=== PATIENT | female | born 1980 | race Caucasian/White ===

== ENCOUNTER 2019-05-06 19:35 | Observation (INO) | payer BC ==
[~2019-05-06] VITALS: Ht 165.1 cm; Wt 59.1 kg
[~2019-05-06 19:35] MED LIST: ALLEGRA30 MG PO; CLARITIN 1010 MG/TAB PO; MOTRIN 600600 MG/TAB PO; PERCOCET 325 MG1 TA2 PO; SUDAFED PE10 M1 MM
[2019-05-06 20:39] LABS: BASO # 0.1 (0.0-0.2); BASO % 0.5 % (0.0-2.0); EOS # 0.2 (0.0-0.7); EOS % 1.4 % (0-4.0); GRAN # 11.3 (1.4-6.5); GRAN % 74.3 % (42.2-75.2); HEMATOCRIT 43.1 % (37.0-47.0); HEMOGLOBIN 14.5 g/dl (12.5-16.0); LYMPH # 2.1 (1.2-3.4); LYMPH % 13.7 % (20.0-51.0); MEAN CELL VOLUME 87 fl (80.0-100.0); MEAN CORPUSCULAR HEMOGLOBIN 29 pg (27.0-31.0); MEAN CORPUSCULAR HGB CONC 34 g/dl (33.0-37.0); MEAN PLATELET VOLUME 9.2 fl (7.4-10.4); MONO # 1.5 (0.1-0.6); MONO % 9.8 % (1.7-9.3); PLATELET COUNT 300 K/mm3 (130-400); RED BLOOD COUNT 4.98 M/mm3 (4.10-5.30); REDCELL DISTRIBUTION WIDTH-CV 12.3 % (11.5-14.5)
[2019-05-06 20:46] LABS: COLLECTION METHOD CLEAN CATCH
[2019-05-06 20:46] LABS: ALBUMIN 4.4 gm/dL (3.5-5.0); BILIRUBIN,TOTAL 0.6 mg/dL (0.0-1.0); CALCIUM 9.4 mg/dL (8.4-10.2); CREATININE, serum 0.74 (0.52-1.25); POTASSIUM 3.7 mmol/L (3.4-5.0); TOTAL PROTEIN 7.7 gm/dL (6.4-8.2)
[2019-05-06 21:10] LABS: PH 8 (5-8); URINE APPEARANCE Clear; URINE BACTERIA None Seen /hpf; URINE BILIRUBIN Negative (NEGATIVE); URINE BLOOD 2+ (NEGATIVE); URINE COLOR Straw; URINE GLUCOSE Negative (NEGATIVE); URINE KETONE Trace (NEGATIVE); URINE LEUKOCYTE ESTERASE Negative (NEGATIVE); URINE NITRATE Negative (NEGATIVE); URINE PROTEIN(semi-quant) Negative (NEGATIVE); URINE UROBILINOGEN Negative (NEGATIVE)
[2019-05-06 22:40] VITALS: BP 104/62; PULSE 64; TEMP 98.4
[2019-05-06 23:34] VITALS: BP 104/62; PULSE 64; TEMP 98.4
--- NOTE | 2019-05-07 02:30 | NUR ---
Up to bathroom with steady gait. Rates pain at a 2 on 1-10 scale while up to bathroom.
--- NOTE | 2019-05-07 02:35 | NUR ---
requests and receives pain medication, reports pain now a 6.
[2019-05-07 05:30] VITALS: BP 95/57; PULSE 56; TEMP 98.3
--- NOTE | 2019-05-07 05:30 | NUR ---
Awakened for vital signs. Reports pain level a 2 on 1 to 10 scale
[2019-05-07 07:04] VITALS: BP 100/70; PULSE 54
[2019-05-07 07:16] LABS: HEMATOCRIT 38.5 % (37.0-47.0); MEAN CELL VOLUME 90 fl (80.0-100.0); MEAN CORPUSCULAR HEMOGLOBIN 29 pg (27.0-31.0); MEAN CORPUSCULAR HGB CONC 33 g/dl (33.0-37.0); PLATELET COUNT 239 K/mm3 (130-400); RED BLOOD COUNT 4.27 M/mm3 (4.10-5.30); REDCELL DISTRIBUTION WIDTH-CV 12.7 % (11.5-14.5)
[2019-05-07 07:19] LABS: HEMOGLOBIN 12.5 g/dl (12.5-16.0)
[2019-05-07] MEDS ORDERED: PERCOCET 325 MG1 TA2 PO (08:44)
[2019-05-07] MEDS ORDERED: MOTRIN 800800 MG/TAB PO (08:44)
--- NOTE | 2019-05-07 08:45 | NUR ---
Patient discharge education reviewed, patient states understanding, denies questions or concerns. patient escorted off unit with spouse.
== END 2019-05-07 08:45 | disposition home or self-care (01) ==
LOC: COL.ER 19:35 → OB 22:04
PROVIDERS: Emergency Medicine; ADMIT Obstetrics & Gynecology
DX: R10.2 Pelvic and perineal pain (principal); C18.9 Malignant neoplasm of colon, unspecified
CPT/HCPCS: G0378; J1170; J2405; J7030; Q9967

== ENCOUNTER 2019-05-13 12:54 | Inpatient (IN) | payer BC ==
[~2019-05-13] VITALS: Ht 165.1 cm; Wt 56.0 kg
[~2019-05-13 12:54] MED LIST changes: +MOTRIN 800800 MG/TAB PO
[2019-05-27] VITALS (10 sets, daily range): BP systolic 116–138; BP diastolic 70–90; PULSE 16–108; TEMP 97.7–98.2
[2019-05-27] MEDS ORDERED: EXCEDRIN1 TAB PO (09:24)
[2019-05-27] MEDS ORDERED: ZOFRAN 4MG T4 MG/TAB PO (09:25)
--- NOTE | 2019-05-27 14:45 | NUR ---
PATIENT TO ROOM 331 PER BED WITH REPORT FROM NILAM ROSE PACU @ 1400. PT IS DROWSY BUT EASILY AROUSABLE, LUNGS CLEAR, SIX LAP SITES CDI WITH BANDAIDS OVER INCISIONS. SMITH CATHETER TO DD CLEAR YELLOW URINE IN BAG. IV TO RW. ORIENTED PT AND FAMILY TO ROOM AND DIET ORDERS. REVIEWED ERAS PROTOCOLS. VSS, WARM BLANKETS PROVIDED. AND EXTENDED FAMILY AT BEDSIDE.
--- NOTE | 2019-05-27 16:23 | NUR ---
PT RESTING COMFORTABLY IN ROOM MANY VISITORS COMMING AND GOING.
--- NOTE | 2019-05-27 17:52 | NUR ---
PT UP WALKING HALLS WITH SBA. WALKED 200+ FEET EASILY. PAIN WELL CONTROLLED WITH PO PAIN MEDS SEE EMAR. PT UP TO RECLINER AFTER WALK STARTED CHEWING GUM AND EATING CLEARS.
--- NOTE | 2019-05-27 23:14 | NUR ---
PATIENT ASSESSMENT COMPLETED. 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 PATIENT ALERT AND ORIENTED AND VSS. PATIENT HAS 6 LAP SITES, ALL CLEAN DRY AND INTACT, COVERED WITH BANAID. PATIETN DOES HAVE SMITH WITH CLEAR, YELLOW URINE. PATIENT IS DOING WELL. PATIENT AMBUALTED IN HERNANDEZ TWICE AND TOLERATED WELL. PATIENT HAS IV IN LEFT HAND WITH NS RUNNING. PATIENT DOES NOT C/O PAIN AT THIS TIME, ALL MEDS GIVEN. PATIENT SLEEPING IN ROOM WITH FAMILY. CALL LIGHT WITHIN REACH, WILL CONTINUE TO MONITOR
[2019-05-28] VITALS (7 sets, daily range): BP systolic 100–119; BP diastolic 62–78; PULSE 55–84; TEMP 97.6–98.4
--- NOTE | 2019-05-28 02:16 | NUR ---
patient resting quietly in bed. ancef given to patient. call light within reach, will continue to monitor
--- NOTE | 2019-05-28 03:50 | NUR ---
patient resting in bed, states she feels good and has been sleeping well. call light within reach, will continue to monitor
[2019-05-28 06:39] LABS: BASO # 0.1 (0.0-0.2); BASO % 0.5 % (0.0-2.0); EOS # 0.1 (0.0-0.7); EOS % 0.6 % (0-4.0); GRAN % 72.9 % (42.2-75.2); HEMATOCRIT 39.4 % (37.0-47.0); LYMPH # 1.4 (1.2-3.4); LYMPH % 13.1 % (20.0-51.0); MEAN CELL VOLUME 87 fl (80.0-100.0); MEAN CORPUSCULAR HEMOGLOBIN 29 pg (27.0-31.0); MEAN CORPUSCULAR HGB CONC 33 g/dl (33.0-37.0); MEAN PLATELET VOLUME 9.6 fl (7.4-10.4); MONO # 1.4 (0.1-0.6); MONO % 12.4 % (1.7-9.3); PLATELET COUNT 220 K/mm3 (130-400); RED BLOOD COUNT 4.51 M/mm3 (4.10-5.30); REDCELL DISTRIBUTION WIDTH-CV 12.4 % (11.5-14.5)
[2019-05-28 06:56] LABS: CALCIUM 8.5 mg/dL (8.4-10.2); CREATININE, serum 0.78 (0.52-1.25); POTASSIUM 3.4 mmol/L (3.4-5.0)
--- NOTE | 2019-05-28 08:00 | NUR ---
PATIENT C/O SHARP GAS PAIN IN SHOULDER AND ACHING AT ABDOMINAL LAP SITES. GAVE PRN ROXICODONE, ONE TAB. PATIENT AMBULATED IN HALLWAYS WITH STEADY GAIT. PATIENT REPORTS SHE IS PASSING GAS AND BELCHING. NURSING ENCOURAGED THE AMBULATION, WHICH PATIENT IS REALLY GOOD ABOUT DOING. PATIENT NOW SITTING UP IN BEDSIDE CHAIR WITH BLE ELEVATED. NURSING OFFERED K-PAD FOR SHOULDERS. PATIENT WANTING TO SEE IF GAS PAIN GETS BETTER BUT WILL LET NURSING KNOW IF SHE WANT TO TRY HEAT. FAMILY AT BEDSIDE. NO OTHER NEEDS AT THIS TIME. CALL LIGHT IN REACH.
--- NOTE | 2019-05-28 09:47 | NUR ---
Initial visit; Patient and family thanked [employer] for looking in on her and offering encouragement and God's blessings.
--- NOTE | 2019-05-28 13:38 | NUR ---
patient is resting in bed. family member visiting. patient has no complaints. call light and personal belongings with in reach. reporsted off to primary nurse.
--- NOTE | 2019-05-28 15:04 | NUR ---
PAGE met with the patient to discuss a discharge plan. The patient lives [place]between [facility] with her Inder and their two children. The patient does not use DME and reports independence with ADLs. The patient's PCP is Dr. Armijo and receives medications from [facility] with no difficulties. The patient does not have advanced directives in the EMR and was not interested in a DPOA-HC form. The patient plans to return home upon discharge with Inder providing transportation. There are no additional needs at this time.
--- NOTE | 2019-05-28 18:15 | NUR ---
Recieved report from Devora ROSE. Patient walked several times throughout day. Patient received shower in the afternoon and is laying comfortably in bed with family at the bedside. Patient is content with her progress and has advanced diet to low residue. Reported off to Devora ROSE
[2019-05-29] VITALS (7 sets, daily range): BP systolic 106–159; BP diastolic 59–99; PULSE 56–86; TEMP 98–983
--- NOTE | 2019-05-29 07:00 | NUR ---
Report from Ralph ROSE.
--- NOTE | 2019-05-29 13:54 | NUR ---
Patient up and visting with family. In good spirits. No complaints of pain at this time. Drink fluids as tolerated. Some nausea experienced during shift, relieved with medication. No complaints at this time. Call light with in reach. Report to primary.
--- NOTE | 2019-05-29 18:58 | NUR ---
Report to Lila ROSE.
--- NOTE | 2019-05-29 21:51 | NUR ---
Patient assessment completed. patient here with dx of robotic sig/slim lam. patient does c/o some nausea. prn zofran given. patient has iv to left hand. patient vss, heart and lung sounds normal. patient denies pain at this time. patient resting in bed with sister. call light within reach, will continue to monitor
--- NOTE | 2019-05-29 23:07 | NUR ---
Toradol given to patient. Patient is sleeping room quietly. call light within reach, will continue to monitor
--- NOTE | 2019-05-30 03:28 | NUR ---
Patient resting well in room. No c/o pain at this time. Call light within reach, will continue to monitor
[2019-05-30 04:00] VITALS: BP 111/63; PULSE 65; TEMP 97.9
[2019-05-30 07:45] VITALS: BP 116/73; PULSE 63; TEMP 97.8
--- NOTE | 2019-05-30 08:30 | NUR ---
Patient sitting up in bed upon assessment. States that the pain in her abdomen feels "different" this morning, more of a "burning, cramping" sensation. Patient states she does not feel nauseous this morning and is going to try eating some breakfast and going for a walk. No further concerns at this time. Call light in reach.
[2019-05-30] MEDS ORDERED: NEURONTIN100 MG/CAP PO (09:32)
[2019-05-30] MEDS ORDERED: ULTRAM 50MG TAB50 MG PO (09:32)
[2019-05-30] MEDS ORDERED: ROXICODONE 55 MG/TAB PO (09:33)
[2019-05-30 11:36] LABS: ALBUMIN 3.3 gm/dL (3.5-5.0); BILIRUBIN,TOTAL 0.6 mg/dL (0.0-1.0); CALCIUM 8.5 mg/dL (8.4-10.2); CREATININE, serum 0.64 (0.52-1.25); POTASSIUM 3.6 mmol/L (3.4-5.0)
[2019-05-30 11:38] LABS: BASO # 0.1 (0.0-0.2); BASO % 0.4 % (0.0-2.0); EOS # 0.3 (0.0-0.7); EOS % 2.2 % (0-4.0); GRAN # 9.9 (1.4-6.5); GRAN % 77.4 % (42.2-75.2); HEMOGLOBIN 12.3 g/dl (12.5-16.0); LYMPH # 1.3 (1.2-3.4); LYMPH % 9.9 % (20.0-51.0); MEAN CELL VOLUME 87 fl (80.0-100.0); MEAN CORPUSCULAR HEMOGLOBIN 29 pg (27.0-31.0); MEAN CORPUSCULAR HGB CONC 34 g/dl (33.0-37.0); MEAN PLATELET VOLUME 9.9 fl (7.4-10.4); MONO # 1.2 (0.1-0.6); MONO % 9.6 % (1.7-9.3); PLATELET COUNT 201 K/mm3 (130-400); RED BLOOD COUNT 4.18 M/mm3 (4.10-5.30); REDCELL DISTRIBUTION WIDTH-CV 12.2 % (11.5-14.5)
[2019-05-30 11:41] LABS: HEMATOCRIT 36.4 % (37.0-47.0)
[2019-05-30 12:23] VITALS: BP 129/77; PULSE 57; TEMP 98.3
[2019-05-30 16:00] VITALS: BP 139/81; PULSE 55; TEMP 97.9
--- NOTE | 2019-05-30 18:13 | NUR ---
Patient has had little to no pain this afternoon and evening. She has been eating small amount of foods without pain or nausea. She gets full quickly but otherwise has no difficulty.
[2019-05-30 20:00] VITALS: BP 109/67; PULSE 56; TEMP 97.6
--- NOTE | 2019-05-30 20:32 | NUR ---
Patient assessment completed. Patient a/o with vss. Patient does not c/o pain at this time. Patient states she is doing well and was able to keep her dinner down. Patient ambulating in hallway. Patient has IV in left hand, clean dry and intact. Patient does not have any complaints at this time. Will continue to monitor
[2019-05-31] VITALS: BP 103/60; PULSE 71; TEMP 98.3
--- NOTE | 2019-05-31 03:57 | NUR ---
Patient doing well. Resting in bed. tylenol given and patient states she has no pain at this time. Call light within reach, will continue to monitor
[2019-05-31 04:00] VITALS: BP 106/66; PULSE 72; TEMP 98.4
--- NOTE | 2019-05-31 07:30 | NUR ---
PT LAYING IN BED WITH IN RECLINER BY HER SIDE.
[2019-05-31 08:09] VITALS: BP 116/79; PULSE 73; TEMP 98.7
[2019-05-31 09:45] LABS: BASO % 0.4 % (0.0-2.0); EOS # 0.5 (0.0-0.7); EOS % 4.8 % (0-4.0); GRAN # 8.2 (1.4-6.5); GRAN % 73.3 % (42.2-75.2); HEMOGLOBIN 11.7 g/dl (12.5-16.0); LYMPH # 1.2 (1.2-3.4); LYMPH % 10.8 % (20.0-51.0); MEAN CELL VOLUME 87 fl (80.0-100.0); MEAN CORPUSCULAR HEMOGLOBIN 29 pg (27.0-31.0); MEAN CORPUSCULAR HGB CONC 34 g/dl (33.0-37.0); MEAN PLATELET VOLUME 9.6 fl (7.4-10.4); MONO # 1.2 (0.1-0.6); MONO % 10.4 % (1.7-9.3); PLATELET COUNT 192 K/mm3 (130-400); RED BLOOD COUNT 3.99 M/mm3 (4.10-5.30); REDCELL DISTRIBUTION WIDTH-CV 12.2 % (11.5-14.5)
[2019-05-31 09:47] LABS: HEMATOCRIT 34.5 % (37.0-47.0)
[2019-05-31 10:05] LABS: CALCIUM 8.3 mg/dL (8.4-10.2); CREATININE, serum 0.57 (0.52-1.25); POTASSIUM 3.7 mmol/L (3.4-5.0)
[2019-05-31] MEDS ORDERED: CARAFATE 1GM1 G PO (10:42)
[2019-05-31] MEDS ORDERED: PRILOTC PO (10:42)
--- NOTE | 2019-05-31 11:20 | NUR ---
PT AND MOM IN THE ROOM. PT GIVEN PRESCRIPTIONS, APPT CARD AND DISCHARGE INFORMATION. ALL QUESTIONS INVITED AND ANSWERED. PT AND MOM PACKED UP PT BELONGINGS. PHYSICAL DESIGN ENGINEER INTO ROOM. INT DC'D INTACT WITH PRESSURE DRESSING APPLIED.
--- NOTE | 2019-05-31 11:40 | NUR ---
PT TAKEN DOWN TO POV IN WHEELCHAIR. FAMILY TOOK ALL HER BELONGINGS DOWN.
== END 2019-05-31 11:40 | disposition home or self-care (01) | DRG 330 ==
LOC: INPTSU 05-27 08:56 → JCC 05-27 08:56 → SURG 05-27 13:30 → JCC 05-27 14:00
PROVIDERS: Surgery; ADMIT Surgery
PROC: 0DTN4ZZ Resection of Sigmoid Colon, Percutaneous Endoscopic Approach (ICD-10-PCS; principal; 2019-05-27 13:30)
PROC: 0FT44ZZ Resection of Gallbladder, Percutaneous Endoscopic Approach (ICD-10-PCS; 2019-05-27 13:30)
PROC: 8E0W4CZ Robotic Assisted Procedure of Trunk Region, Percutaneous Endoscopic Approach (ICD-10-PCS; 2019-05-27 13:30)
DX: C18.7 Malignant neoplasm of sigmoid colon (principal); K92.1 Melena; K80.20 Calculus of gallbladder without cholecystitis without obstruction; Z72.89 Other problems related to lifestyle; R11.0 Nausea
CPT/HCPCS: A4314; A9284; C9113; J0690; J1650; J1885; J2250; J2405; J2704; J3010; J7120

== ENCOUNTER → 2019-09-21 | Outpatient (CLI) | payer BC ==
[~2019-09-21] MED LIST changes: +CARAFATE 1GM1 G PO; +EXCEDRIN1 TAB PO; +NEURONTIN100 MG/CAP PO; +PRILOTC PO; +ROXICODONE 55 MG/TAB PO; +ULTRAM 50MG TAB50 MG PO; +ZOFRAN 4MG T4 MG/TAB PO
== END ==
LOC: COL.VAS 11:00
DX: R25.2 Cramp and spasm (principal); Z98.890 Other specified postprocedural states; M79.605 Pain in left leg

== ENCOUNTER → 2021-06-21 | Outpatient (CLI) | payer BC | LOC: COL.RAD 10:12 | DX: C18.9 Malignant neoplasm of colon, unspecified (principal) | CPT/HCPCS: Q9967 ==